=== PATIENT | female | born 1950 | race American Indian/Alaskan Native ===

== ENCOUNTER 2017-12-27 19:35 | Emergency (ER) | payer OTHER ==
[2017-12-27] MEDS ORDERED: ASPIRIN PO ONE (20:04)
[2017-12-27 20:24] LABS: Basophils # (Auto) 0.1 K/mm3 (0.0-0.1); Basophils % (Auto) 1.2 % (0.0-1.8); Eosinophils # (Auto) 0.1 K/mm3 (0.0-0.4); Eosinophils % (Auto) 1.5 % (0.0-4.3); Hematocrit 38.2 % (30.3-42.9); Hemoglobin 12.7 gm/dl (10.1-14.3); Lymphocytes # (Auto) 2.4 K/mm3 (1.2-5.4); Lymphocytes % (Auto) 34.7 % (13.4-35.0); Mean Corpuscular HGB Conc 33 % (30-34); Mean Corpuscular Hemoglobin 34 pg (28-32); Mean Corpuscular Volume 103 fl (79-97); Monocytes # (Auto) 0.9 K/mm3 (0.0-0.8); Monocytes % (Auto) 12.6 % (0.0-7.3); Platelet Count 286 K/mm3 (140-440); Red Blood Count 3.72 M/mm3 (3.65-5.03); Red Cell Distribution Width 13.5 % (13.2-15.2)
[2017-12-27] MEDS ORDERED: NACL 0.9% 1000 ML 1,000 ML IV ONE (20:35)
[2017-12-27] MEDS ORDERED: MORPHINE IV ONE (20:35)
[2017-12-27] MEDS ORDERED: ZOFRAN IV ONE (20:35)
[2017-12-27 20:37] LABS: BUN/Creatinine Ratio 18; Blood Urea Nitrogen 7 mg/dL (7-17); Calcium 8.5 mg/dL (8.4-10.2); Hemolysis Index 15
--- NOTE | 2017-12-27 20:39 | Emergency Department Report ---
ED General Adult HPI - General Chief complaint: Chest Pain Stated complaint: CHEST PAIN Time Seen by Provider: 12/27/17 20:29 Source: patient Mode of arrival: Ambulatory Limitations: No Limitations - History of Present Illness Initial comments: Patient is 67-year-old female history of hypertension, asthma and hyperthyroidism. Patient presented to the ER with multiple complaints. She stated that she been having chest pain for the last 2 weeks substernal sharp in nature and does not radiate associated with nausea but no vomiting patient is also complaining of bilateral flank pain and increased urinary frequency. Patient denied any fever or vomiting but she said she nauseated. -: week(s) Location: chest, abdomen Consistency: constant - Related Data Previous Rx's Medication Instructions Recorded Last Taken Type Albuterol (Nf) [Proventil TAB] 4 mg INHALATION Q4HR PRN #1 device 01/14/15 Unknown Rx Diazepam Tab [Valium] 5 mg PO TID PRN #3 tablet 01/14/15 Unknown Rx Levothyroxine [Synthroid] 125 mcg PO QAM #30 tablet 01/14/15 Unknown Rx Pregabalin [Lyrica] 25 mg PO QDAY #3 capsule 01/14/15 Unknown Rx Propranolol LA [Inderal LA] 60 mg PO QDAY #30 capsule 01/14/15 Unknown Rx Zolpidem Tartrate [Ambien] 10 mg PO QDAY #3 tablet 01/14/15 Unknown Rx Allergies Allergy/AdvReac Type Severity Reaction Status Date / Time prochlorperazine edisylate Allergy Unknown Verified 01/13/15 18:51 [From Compazine] prochlorperazine maleate Allergy Unknown Verified 01/13/15 18:51 [From Compazine] ED Review of Systems ROS: Stated complaint: CHEST PAIN Other details as noted in HPI Comment: All other systems reviewed and negative Constitutional: denies: chills, fever Respiratory: denies: cough, orthopnea, shortness of breath, SOB with exertion, SOB at rest, wheezing Cardiovascular: denies: chest pain, palpitations, dyspnea on exertion Gastrointestinal: abdominal pain, nausea. denies: vomiting, diarrhea, constipation, hematemesis, melena, hematochezia ED Past Medical Hx - Past Medical History Previous Medical History?: Yes Hx Congestive Heart Failure: No Hx Diabetes: No Hx Asthma: Yes Hx COPD: No Additional medical history: GRAVES - Surgical History Past Surgical History?: Yes Hx Appendectomy: Yes Additional Surgical History: back surgery. thyroidectomy - Social History Smoking Status: Never Smoker Substance Use Type: None - Medications Home Medications: Home Medications Medication Instructions Recorded Confirmed Last Taken Type Albuterol (Nf) [Proventil TAB] 4 mg INHALATION Q4HR PRN #1 device 01/14/15 Unknown Rx Diazepam Tab [Valium] 5 mg PO TID PRN #3 tablet 01/14/15 Unknown Rx Levothyroxine [Synthroid] 125 mcg PO QAM #30 tablet 01/14/15 Unknown Rx Pregabalin [Lyrica] 25 mg PO QDAY #3 capsule 01/14/15 Unknown Rx Propranolol LA [Inderal LA] 60 mg PO QDAY #30 capsule 01/14/15 Unknown Rx Zolpidem Tartrate [Ambien] 10 mg PO QDAY #3 tablet 01/14/15 Unknown Rx ED Physical Exam - General Limitations: No Limitations General appearance: alert, in no apparent distress - Head Head exam: Present: atraumatic, normocephalic - ENT ENT exam: Present: mucous membranes dry - Neck Neck exam: Present: normal inspection, full ROM. Absent: tenderness, meningismus - Respiratory Respiratory exam: Present: normal lung sounds bilaterally. Absent: respiratory distress, wheezes, rales, rhonchi, stridor, chest wall tenderness, accessory muscle use, decreased breath sounds, prolonged expiratory - Cardiovascular Cardiovascular Exam: Present: regular rate, normal rhythm, normal heart sounds - GI/Abdominal GI/Abdominal exam: Present: soft, normal bowel sounds. Absent: distended, tenderness, guarding, rebound, rigid, organomegaly, mass, bruit, pulsatile mass , hernia - Extremities Exam Extremities exam: Present: normal inspection, full ROM, normal capillary refill - Back Exam Back exam: Present: normal inspection, full ROM, CVA tenderness (L). Absent: CVA tenderness (R), muscle spasm, paraspinal tenderness, vertebral tenderness, rash noted - Neurological Exam Neurological exam: Present: alert, oriented X3, CN II-XII intact, normal gait, reflexes normal. Absent: abnormal gait, motor sensory deficit - Skin Skin exam: Present: warm, dry, intact ED Course Vital Signs 12/27/17 12/27/17 19:57 21:00 Temperature 98.6 F 98.2 F Pulse Rate 82 64 Respiratory 18 16 Rate Blood Pressure 130/82 Blood Pressure 172/78 [Left] O2 Sat by Pulse 100 Oximetry - Reevaluation(s) Reevaluation #1: 12/27/17 22:17 Patient stated that she is feeling much better. Her pain markedly improved. No nausea no vomiting. I informed the patient about her lab tests and CT abdomen and pelvis and I advised her to follow up with her primary care physician for further management. And to return to the ER if her symptoms get worse. ED Medical Decision Making - Lab Data Result diagrams: 12/27/17 20:12 12/27/17 20:12 Critical care attestation.: If time is entered above; I have spent that time in minutes in the direct care of this critically ill patient, excluding procedure time. ED Disposition Clinical Impression: Abdominal pain, Generalized pain Disposition: DC-01 TO HOME OR SELFCARE Is pt being admited?: No Condition: Stable Instructions: Abdominal Pain (ED) Referrals: PRIMARY CARE, [Referring] - 3-5 Days
[2017-12-27 21:06] LABS: Bilirubin,Urine NEG (Negative); Blood,Urine NEG (Negative); Color,Urine Straw (Yellow); Protein,Urine <15 mg/dL mg/dL (Negative); RBC,Urine < 1.0 /HPF (0.0-6.0); Urobilinogen,Urine < 2.0 mg/dL (<2.0); WBC,Urine < 1.0 /HPF (0.0-6.0)
--- NOTE | 2017-12-27 21:48 | Cat Scan Report ---
FINAL REPORT PROCEDURE: CT ABDOMEN PELVIS WO CON TECHNIQUE: Computerized axial tomography of the abdomen and pelvis was performed without intravenous contrast. This study is performed without intravascular contrast material and its sensitivity for abdominal and pelvic pathology, including neoplasms, inflammation, abscess, free fluid, thrombosis, arterial dissection and infarction, is reduced compared with a contrast enhanced study. HISTORY: ABDOMINAL PAIN, LEFT FLANK PAIN COMPARISON: No prior studies are available for comparison. FINDINGS: Liver, spleen, and adrenal glands are within normal limits. Bilateral kidneys demonstrate normal density without calculi or hydronephrosis. Urinary bladder is partially filled with normal outlines. Aorta is of normal caliber. There is no free fluid or free air. Gallbladder is unremarkable. Small bowel loops are within normal limits. Mild degree residual stool is noted. Appendix is not distinctly visualized. There are no inflammatory changes in the right lower quadrant. Moderate degree degenerative changes are noted involving the lumbar spine with evidence of spinal canal stenosis at L4-5. IMPRESSION: No acute intra-abdominal or pelvic pathology Mild degree residual stool Spinal canal stenosis at L4-5..
--- NOTE | 2017-12-27 21:52 | XRay Report ---
FINAL REPORT PROCEDURE: XR CHEST 1V AP TECHNIQUE: Chest radiograph anteroposterior view. CPT 41384 HISTORY: chest pain COMPARISON: No prior studies are available for comparison. FINDINGS: Heart: Normal. Mediastinum/Vessels: Normal. Lungs/Pleural space: Normal. Bony thorax: No acute osseous abnormality. Life support devices: None. IMPRESSION: No acute cardiopulmonary abnormality.
[2017-12-27] MEDS ORDERED: ATROVENT IH ONE (22:19)
[2017-12-27] MEDS ORDERED: XOPENEX IH ONE (22:19)
[2017-12-28 00:25] VITALS: BP 165/72
== END 2017-12-28 00:24 | disposition home or self-care (01) ==
LOC: ED 19:35
DX: R10.84 Generalized abdominal pain (principal); J45.909 Unspecified asthma, uncomplicated; Z88.8 Allergy status to other drugs, medicaments and biological substances; I10 Essential (primary) hypertension
CPT/HCPCS: 36415; 71045; 74176; 80048; 81001; 84484; 85025; 93005; 93010; 94640; 96361; 96374; 96375; 99285; J2270; J2405; J7030

== ENCOUNTER 2018-01-13 20:06 | Emergency (ER) | payer OTHER ==
[2018-01-13 20:51] LABS: Basophils % (Auto) 0.7 % (0.0-1.8); Eosinophils # (Auto) 0.1 K/mm3 (0.0-0.4); Eosinophils % (Auto) 1.7 % (0.0-4.3); Hemoglobin 12.6 gm/dl (10.1-14.3); Lymphocytes # (Auto) 1.6 K/mm3 (1.2-5.4); Lymphocytes % (Auto) 33.2 % (13.4-35.0); Mean Corpuscular HGB Conc 33 % (30-34); Mean Corpuscular Hemoglobin 34 pg (28-32); Mean Corpuscular Volume 102 fl (79-97); Monocytes # (Auto) 0.6 K/mm3 (0.0-0.8); Monocytes % (Auto) 13.6 % (0.0-7.3); Platelet Count 346 K/mm3 (140-440); Red Blood Count 3.71 M/mm3 (3.65-5.03); Red Cell Distribution Width 12.7 % (13.2-15.2)
[2018-01-13 21:10] LABS: Alanine Aminotransferase 18 units/L (7-56); Albumin 3.7 g/dL (3.9-5); BUN/Creatinine Ratio 30; Blood Urea Nitrogen 9 mg/dL (7-17); Calcium 8.5 mg/dL (8.4-10.2); Hemolysis Index 3; Lipase 18 units/L (13-60)
[2018-01-13] MEDS ORDERED: NACL 0.9% 1000 ML 1,000 ML IV ONE (21:17)
[2018-01-13] MEDS ORDERED: ZOFRAN IV ONE (21:17)
[2018-01-13] MEDS ORDERED: LIDOCAINE VISCOUS 2% PO ONE (21:17)
[2018-01-13] MEDS ORDERED: ALUM-MAG HYDROX-SIMETH 200-200-20MG/5ML PO ONE (21:17)
--- NOTE | 2018-01-13 21:23 | Emergency Department Report ---
ED General Adult HPI - General Chief complaint: Abdominal Pain Stated complaint: HEADACHE,ABDOMINAL PAIN Time Seen by Provider: 01/13/18 21:02 Source: patient Mode of arrival: Ambulatory Limitations: No Limitations - History of Present Illness Initial comments: Patient is 67-year-old female with past medical history of hypertension and asthma. Patient presented with his headache has been ongoing for 2 weeks and chronic abdominal pain for more than one year, pain is mainly epigastric. Patient was seen here 1 month ago evaluated with an abdominal CT scan that did not show anything acute. Patient was advised to follow-up with a GI doctor for possible endoscopy but she did not. Patient denied any fever or diarrhea. Patient stated that she been having trouble with her urine also. - Related Data Home Medications Medication Instructions Recorded Confirmed Last Taken Aspirin EC [Aspirin Enteric Coated 81 mg PO DAILY 12/27/17 12/27/17 Unknown TAB] Baclofen [Lioresal] 10 mg PO TID 12/27/17 12/27/17 Unknown HYDROcodone/APAP 5-325 [[place] 5 - 325 mg PO Q6H PRN 12/27/17 12/27/17 Unknown 5-325 mg TAB] Levothyroxine Sodium [Synthroid] 150 mcg PO DAILY 12/27/17 12/27/17 Unknown [place]-3/Dha/Epa/Fish Oil [[place] 3 1 each PO DAILY 12/27/17 12/27/17 Unknown 500 Softgel] Pregabalin [Lyrica] 50 mg PO BID 12/27/17 12/27/17 Unknown Propranolol LA [Inderal LA] 60 mg PO DAILY 12/27/17 12/27/17 Unknown Zolpidem Tartrate [Ambien] 10 mg PO QHS 12/27/17 12/27/17 12/26/17 Previous Rx's Medication Instructions Recorded Last Taken Type Albuterol (Nf) [Proventil TAB] 4 mg INHALATION Q4HR PRN #1 device 01/14/15 Unknown Rx Esomeprazole Magnesium [NexIUM] 40 mg PO QDAY #30 capsule. 12/27/17 Unknown Rx Ondansetron [Zofran Odt] 4 mg PO Q8HR PRN #14 tab.rapdis 12/27/17 Unknown Rx traMADol [Ultram] 50 mg PO Q6HR PRN #14 tablet 12/27/17 Unknown Rx Allergies Allergy/AdvReac Type Severity Reaction Status Date / Time prochlorperazine edisylate Allergy Unknown Verified 01/13/15 18:51 [From Compazine] prochlorperazine maleate Allergy Unknown Verified 01/13/15 18:51 [From Compazine] ED Review of Systems ROS: Stated complaint: HEADACHE,ABDOMINAL PAIN Other details as noted in HPI Comment: All other systems reviewed and negative Constitutional: denies: chills, fever Respiratory: denies: cough, shortness of breath, SOB with exertion Gastrointestinal: abdominal pain, nausea. denies: vomiting, diarrhea, constipation Genitourinary: urgency, dysuria, frequency Neurological: denies: headache, weakness, numbness ED Past Medical Hx - Past Medical History Hx Congestive Heart Failure: No Hx Diabetes: No Hx Asthma: Yes Hx COPD: No Additional medical history: GRAVES - Surgical History Hx Appendectomy: Yes Additional Surgical History: back surgery. thyroidectomy - Social History Smoking Status: Never Smoker Substance Use Type: None - Medications Home Medications: Home Medications Medication Instructions Recorded Confirmed Last Taken Type Albuterol (Nf) [Proventil TAB] 4 mg INHALATION Q4HR PRN #1 device 01/14/1512/27 Unknown Rx Aspirin EC [Aspirin Enteric Coated 81 mg PO DAILY 12/27/17 12/27/17 Unknown History TAB] Baclofen [Lioresal] 10 mg PO TID 12/27/17 12/27/17 Unknown History Esomeprazole Magnesium [NexIUM] 40 mg PO QDAY #30 capsule. 12/27/17 Unknown Rx HYDROcodone/APAP 5-325 [[place] 5 - 325 mg PO Q6H PRN 12/27/17 12/27/17 Unknown History 5-325 mg TAB] Levothyroxine Sodium [Synthroid] 150 mcg PO DAILY 12/27/17 12/27/17 Unknown History [place]-3/Dha/Epa/Fish Oil [[place] 3 1 each PO DAILY 12/27/17 12/27/17 Unknown History 500 Softgel] Ondansetron [Zofran Odt] 4 mg PO Q8HR PRN #14 tab.rapdis 12/27/17 Unknown Rx Pregabalin [Lyrica] 50 mg PO BID 12/27/17 12/27/17 Unknown History Propranolol LA [Inderal LA] 60 mg PO DAILY 12/27/17 12/27/17 Unknown History Zolpidem Tartrate [Ambien] 10 mg PO QHS 12/27/17 12/27/17 12/26/17 History traMADol [Ultram] 50 mg PO Q6HR PRN #14 tablet 12/27/17 Unknown Rx ED Physical Exam - General Limitations: No Limitations General appearance: alert, in no apparent distress, anxious - Head Head exam: Present: atraumatic, normocephalic, normal inspection - Eye Eye exam: Present: normal appearance, PERRL - ENT ENT exam: Present: normal exam, normal orophraynx, mucous membranes moist - Neck Neck exam: Present: normal inspection, full ROM. Absent: tenderness, meningismus - Respiratory Respiratory exam: Present: normal lung sounds bilaterally. Absent: respiratory distress, wheezes, rales, rhonchi, chest wall tenderness - Cardiovascular Cardiovascular Exam: Present: regular rate, normal rhythm, normal heart sounds - GI/Abdominal GI/Abdominal exam: Present: soft, normal bowel sounds. Absent: distended, tenderness, guarding, rebound, rigid, organomegaly, mass, bruit, pulsatile mass , hernia - Extremities Exam Extremities exam: Present: normal inspection, full ROM, normal capillary refill - Back Exam Back exam: Present: normal inspection, full ROM. Absent: tenderness, CVA tenderness (R), CVA tenderness (L) - Neurological Exam Neurological exam: Present: alert, oriented X3, CN II-XII intact, normal gait, reflexes normal. Absent: motor sensory deficit - Skin Skin exam: Present: warm, intact, normal color ED Course Vital Signs 01/13/18 01/13/18 20:14 21:38 Temperature 99.2 F 98.7 F Pulse Rate 98 H 87 Respiratory 18 18 Rate Blood Pressure 136/91 Blood Pressure 142/69 [Left] O2 Sat by Pulse 100 Oximetry - Reevaluation(s) Reevaluation #1: 01/14/18 00:19 Patient stated that she is feeling better. Abdominal pain is better after Mylanta and lidocaine. I advised patient to follow with her primary care physician for GI or referral and endoscopy. ED Medical Decision Making - Lab Data Result diagrams: 01/13/18 20:32 01/13/18 20:32 Critical care attestation.: If time is entered above; I have spent that time in minutes in the direct care of this critically ill patient, excluding procedure time. ED Disposition Clinical Impression: Migraine headache, Abdominal pain Disposition: DC- TO HOME OR SELFCARE Is pt being admited?: No Condition: Stable Instructions: Abdominal Pain (ED), Gastritis (ED) Referrals: HAZEL RAYMUNDO MD [Primary Care Provider] - 3-5 Days
[2018-01-13 21:34] LABS: Bilirubin,Urine NEG (Negative); Blood,Urine NEG (Negative); Color,Urine Yellow (Yellow); Mucus,Urine 2+ /HPF; Protein,Urine <15 mg/dL mg/dL (Negative)
[2018-01-13 21:41] VITALS: BP 142/69
--- NOTE | 2018-01-13 22:23 | Cat Scan Report ---
FINAL REPORT PROCEDURE: CT HEAD/BRAIN WO CON TECHNIQUE: Computerized tomography of the head was performed without contrast material. HISTORY: headache COMPARISON: No prior studies are available for comparison. FINDINGS: Skull and scalp: Normal. Paranasal sinuses: Normal. Ventricles and subarachnoid spaces: Normal. Cerebrum: No evidence of hemorrhage, acute infarction or mass . Cerebellum and brainstem: No evidence of hemorrhage, acute infarction or mass. Vasculature: Atherosclerotic calcification is noted involving bilateral internal carotid and vertebral arteries.. Comments: None. IMPRESSION: No acute intracranial abnormality
[2018-01-14] MEDS ORDERED: TORADOL IV ONE (00:19)
== END 2018-01-14 00:48 | disposition home or self-care (01) ==
LOC: ED 20:06
DX: G43.909 Migraine, unspecified, not intractable, without status migrainosus (principal); R10.13 Epigastric pain; Z79.82 Long term (current) use of aspirin; Z88.8 Allergy status to other drugs, medicaments and biological substances
CPT/HCPCS: 36415; 70450; 80053; 81001; 83690; 85025; 93005; 93010; 96361; 96374; 96375; 99284; J1885; J2405; J7030